=== PATIENT | male | born 1955 | race Caucasian/White ===

== ENCOUNTER → 2021-01-11 | Outpatient (CLI) | payer MEDICARE ==
[~2021-01-11] MED LIST: CARVEDILOL3.125 MG PO; CRESTOR40 MG PO; DESYREL 50 MG T50 MG PO; ECOTRIN81 MG PO; HYDROCODON-ACE1 EAC6 PO; MECLIZINE HCL25 MG PO; METHOCARBAMOL750 MG PO; NEURONTIN300 MG PO; PROTONIX 40 MG40 M1 PO; TRAZODONE HCL300 MG PO
== END ==
LOC: MRI 12:35
DX: M54.2 Cervicalgia (principal); M47.16 Other spondylosis with myelopathy, lumbar region; M47.817 Spondylosis without myelopathy or radiculopathy, lumbosacral region; G25.81 Restless legs syndrome; M96.1 Postlaminectomy syndrome, not elsewhere classified; M53.3 Sacrococcygeal disorders, not elsewhere classified; I25.10 Atherosclerotic heart disease of native coronary artery without angina pectoris; C62.91 Malignant neoplasm of right testis, unspecified whether descended or undescended; F41.9 Anxiety disorder, unspecified; D64.9 Anemia, unspecified; E78.2 Mixed hyperlipidemia; G47.00 Insomnia, unspecified; N40.0 Benign prostatic hyperplasia without lower urinary tract symptoms; E04.1 Nontoxic single thyroid nodule; Z86.73 Personal history of transient ischemic attack (TIA), and cerebral infarction without residual deficits
CPT/HCPCS: 72141